=== PATIENT | female | born 1980 | race Two or more races ===

== ENCOUNTER 2017-03-27 21:22 | Emergency (ER) | payer SELFPAY ==
[2017-03-27 22:01] VITALS: BP 112/63; PULSE 99; TEMP 98.7; BMI 34.7
--- NOTE | 2017-03-27 22:21 | PDOC ---
History of Present Illness - General Chief Complaint: Vaginal Bleeding Stated Complaint: MISCARRIAGE Time Seen by Provider: 03/27/17 21:47 - History of Present Illness Travel History: No Initial Comments: 03/27/17 22:13 36 yo F currently with twins, approx 16 weeks by recent second trimester ultrasound performed one week ago at [facility], here wtih c/o vaginal bleeding. has had spotting for the last week, no prior miscarriage. no lightheaded. no dizzy. no care. Past History - Past Medical History Allergies/Adverse Reactions: Allergies Allergy/AdvReac Type Severity Reaction Status Date / Time No Known Allergies Allergy Verified 03/27/17 21:43 Home Medications: Ambulatory Orders NK [No Known Home Medication] 03/27/17 - Reproductive History Is Patient Now?: Yes - Psycho/Social/Smoking Cessation Hx Suicidal Ideation: No Smoking History: Current every day smoker Information on smoking cessation initiated: No Review of Systems - Review of Systems Constitutional: No: Chills, Diaphoresis, Fever HEENTM: No: Eye Pain, Blurred Vision Respiratory: No: Cough, Orthopnea, Shortness of Breath Cardiac (ROS): No: Chest Pain, Edema, Irregular Heart Rate : Yes: Other (vaginal bleeding.) Integumentary: No: Bruising, Change in Color Neurological: No: Headache, Numbness All Other Systems: Reviewed and Negative *Physical Exam - Vital Signs Last Vital Signs Temp Pulse Resp BP Pulse Ox 98.7 F 99 H 20 112/63 97 03/27/17 21:59 03/27/17 21:59 03/27/17 21:59 03/27/17 21:59 03/27/17 21:59 - Physical Exam General Appearance: Yes: Nourished HEENT: positive: EOMI, Normal Voice Neck: positive: Trachea midline Respiratory/Chest: positive: Lungs Clear, Normal Breath Sounds. negative: Respiratory Distress Cardiovascular: positive: Regular Rhythm, Regular Rate, S1, S2. negative: Edema , JVD, Murmur Vascular Pulses: Dorsalis-Pedis (R): 2+, Doralis-Pedis (L): 2+ Female Pelvic Exam: positive: normal external exam, other (fetus expulsed outside vagina, ) Gastrointestinal/Abdominal: positive: Normal Bowel Sounds. negative: Tender, Soft, Organomegaly Rectal Exam: negative: heme negative stool, normal exam Musculoskeletal: positive: Normal Inspection Extremity: positive: Normal Capillary Refill Integumentary: positive: Normal Color, Dry, Warm Neurologic: positive: Alert, Normal Mood/Affect ED Treatment Course - LABORATORY CBC & Chemistry Diagram: 03/27/17 22:30 03/27/17 22:30 Medical Decision Making - Medical Decision Making 03/27/17 22:26 36 yo F with twin gestation currently roughly 16 weeks, here s/p bleeding. partial delivery. pt with partial delievery. may require d &c, will consult OB executive personal assistant. labs iv fluids. 03/27/17 22:40 d/w dr. Jones, will see pt in the ED 03/28/17 01:28 pt evaluated by OB. passed single fetus, still with twin gestation remaing intrauterine with heart rate. question of whether single placenta, or dual placenta. per Dr. Jones, pt to be expectant management. if passes fetus at home, to return to evaluation for comlete evacuation of products. pt given follow up at [facility]. *DC/Admit/Observation/Transfer Diagnosis at time of Disposition: Miscarriage - Discharge Dispostion Disposition: HOME Admit: No - Referrals Referrals: Ari Jones MD [Staff Physician] - - Patient Instructions Printed Discharge Instructions: Threatened Additional Instructions: you should follow up with [facility], call [phone] to schedule on friday following. should you pass the second fetus you should return to Emergency Room for ultrasound to ensure passing of all products. drink plenty of fluids, you can follow up wt dr. Jones as well. see referral for phone numbers.
[2017-03-27] MEDS ORDERED: SODIUM CHLORIDE 1,000 ML IV STA (22:29)
[2017-03-27 22:52] LABS: BASOPHIL 0.5 % (0-2.0); EOSINOPHIL 0.9 % (0-4.5); MCH 31.1 pg (25.7-33.7); MCHC 34.2 g/dl (32.0-36.0); MEAN CELL VOLUME 91.1 fl (80-96); NEUTROPHILS 75.6 % (42.8-82.8); PLATELET COUNT 166 K/MM3 (134-434); RDW 12.8 % (11.6-15.6); WHITE BLOOD COUNT 14.7 K/mm3 (4.0-10.0)
[2017-03-28 00:44] LABS: ALBUMIN 2.7 g/dl (3.4-5.0); ANION GAP 12 (8-16); BILIRUBIN,TOTAL 0.3 mg/dL (0.2-1.0); CALCIUM 8.2 mg/dL (8.5-10.1); CO2 23 mmol/L (21-32); COCKROFT - GAULT 261.7405; CREATININE 0.5 mg/dL (0.55-1.02); GLUCOSE,RANDOM 92 mg/dL (74-106); SGOT/AST 10 U/L (15-37); SGPT/ALT 12 U/L (12-78); TOT PROT 6.2 g/dl (6.4-8.2)
[2017-03-28 00:45] LABS: ALK PHOS 88 U/L (45-117)
--- NOTE | 2017-03-28 17:27 | PN ---
Progress Note (short form) - Note Progress Note: ask to see patient 16 weeks with twins gestation passed one twin in er , no bleeding, no pain, afebrile, no care comfortable, agfebrile abdomen soft, non tender, no cva, pelvic vagina no blood, cx closed long, no blood no fluid seen .no tissue seen sono 15 weeks,live gestation, normal af case discussed with patient advised d/c home with instruction, if pain, vaginal bleeding, fever , abdominal pain, passing tissue to return, also make apt for follow up in clinc at [facility] in am
--- NOTE | 2017-04-02 11:20 | PATH ---
Surgical Pathology Report Patient Name: ZAC GOMEZ [facility]. Rec. #: [id number] /Age/Gender: 1980 (Age: 36) / F Account: [id number] Location: EMERGENCY ROOM Taken: 03/27/2017 Received: 03/28/2017 Reported: 03/31/2017 Physicians: PHYSICIAN EMERGENCY DEPT Ari Jones M.D. Specimen(s) Received A: PRODUCTS OF CONCEPTION TWIN #1 B: PRODUCTS OF CONCEPTION Clinical History Products of conception Final Diagnosis A. FETUS, TWIN #1, MISCARRIAGE: IMMATURE MALE FETUS, 42 GRAMS, WITH EXTENSIVE AUTOLYSIS. 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 B. UTERINE CONTENTS, EVACUATION: CLOTTED BLOOD. Comment: Recommend correlation with clinical findings and follow up as clinically indicated. Electronically Signed Peng Albrecht M.D. Gross Description A. Received fresh labeled with the patient's name and indicated on the requisition to be a fetus, is a 42 g mostly intact, markedly autolyzed fetus measuring 11 cm from crown to rump and 16.5 cm from crown to heel. Each foot measures 1.3 cm in length. The fetus appears to have a cleft lip and there is a small fissure of the palate. The eyelids are open. The anus and nares are patent. There is a defect in the abdominal wall, exposing the intestines. There is a 12 centimeter in length x 0.3 cm in diameter umbilical cord with 3 vessels attached at the umbilicus. The upper and lower extremities appear well proportioned and without defects. Each hand and foot displays 5 digits. There are no obvious axial defects and the lumbosacral spine is intact. The heart is normally positioned and no definite cardiac or lung abnormalities are noted. The abdominal organs are markedly autolyzed. The external genitalia appears to be that of a male. The brain is markedly autolyzed. Also received within the same container a 7.0 x 6.5 x 1.2 cm red-brown blood clot. Husker Operator sections are submitted in 5 cassettes as follows: 1-heart, lungs, umbilical cord; 2-liver and intestines; 3-kidneys, adrenals and possible testes; 4-brain; 5-blood clot. B. Received in formalin labeled with the patient's name and indicated on the requisition to be products of conception, is a 9.5 x 6.5 x 1.0 cm aggregate of brown blood clot. No definite villous tissue or placental tissue is identified. Husker Operator sections are submitted in 3 cassettes. 03/28/2017 [facility]03/28/2017
== END 2017-03-28 01:59 | disposition home or self-care (01) ==
LOC: JER 21:22
PROC: 3E0337Z Introduction of Electrolytic and Water Balance Substance into Peripheral Vein, Percutaneous Approach (ICD-10-PCS; principal; 2017-03-27)
DX: O30.092 Twin pregnancy, unable to determine number of placenta and number of amniotic sacs, second trimester (principal); O31.12X1 Continuing pregnancy after spontaneous abortion of one fetus or more, second trimester, fetus 1; Z3A.16 16 weeks gestation of pregnancy
CPT/HCPCS: 36415; 76815-TC; 80053; 85025; 86850; 86900; 86901; 88305-TC; 88309-TC; 99283-25

== ENCOUNTER 2017-04-10 18:17 | Inpatient (IN) | payer SELFPAY ==
--- NOTE | 2017-04-10 19:28 | PDOC ---
History of Present Illness - General History Source: Patient Exam Limitations: No Limitations - History of Present Illness Initial Comments: 04/10/17 20:16 Patient is a 36 year old female with no significant past medical history who presents to the ED with vaginal bleeding. Patient was seen in [facility] on 03/27, patient was with twins approx 16 weeks and had a miscarriage of 1 twin while in the ED. Patient presents today with vaginal bleeding and states that she is miscarying the second twin. She denies any nausea, vomiting or abdominal pain. She denies any dizziness or chest pain. <Cynthia Mendoza - Last Filed: 04/10/17 20:16> <Rafiq Welsh - Last Filed: 04/10/17 20:43> - General Chief Complaint: Vaginal Bleeding Stated Complaint: VAGINAL BLEEDING Time Seen by Provider: 04/10/17 19:28 Past History <Cynthia Mendoza - Last Filed: 04/10/17 20:16> - Past Medical History Other medical history: denies - Psycho/Social/Smoking Cessation Hx Suicidal Ideation: No Smoking History: Current every day smoker Number of Cigarettes Smoked Daily: 3 Information on smoking cessation initiated: Yes 'Breaking Loose' booklet given: 04/10/17 Hx Alcohol Use: No Drug/Substance Use Hx: No Substance Use Type: None <Rafiq Welsh - Last Filed: 04/10/17 20:43> - Past Medical History Allergies/Adverse Reactions: Allergies Allergy/AdvReac Type Severity Reaction Status Date / Time No Known Allergies Allergy Verified 04/10/17 20:33 Home Medications: Ambulatory Orders NK [No Known Home Medication] 03/27/17 Review of Systems - Review of Systems Able to Perform ROS?: Yes Comments:: 04/10/17 20:17 CONSTITUTIONAL: No fever, no chills, no fatigue EYES: No visual changes ENT: No ear pain, no sore throat CARDIOVASCULAR: No chest pain, no palpitations RESPIRATORY: No cough, no SOB GI: No abdominal pain, no nausea, no vomiting, no constipation, no diarrhea GENITOURINARY: (+)vaginal bleeding. No dysuria, no frequency, no hematuria MUSCULOSKELETAL: No back pain, no joint pain, no myalgias SKIN: No rash NEURO: No headache <Cynthia Mendoza - Last Filed: 04/10/17 20:16> *Physical Exam - Vital Signs Last Vital Signs Temp Pulse Resp BP Pulse Ox 98 F 80 18 109/60 99 04/10/17 18:40 04/10/17 18:40 04/10/17 18:40 04/10/17 18:40 04/10/17 18:40 <Cynthia Mendoza - Last Filed: 04/10/17 20:16> - Vital Signs Last Vital Signs Temp Pulse Resp BP Pulse Ox 98 F 80 18 109/60 99 04/10/17 18:40 04/10/17 18:40 04/10/17 18:40 04/10/17 18:40 04/10/17 18:40 - Physical Exam Comments: 04/10/17 20:42 EXAMINATION CONSTITUTIONAL: Well-appearing; well-nourished; in no apparent distress HEAD: Normocephalic; atraumatic EYES: PERRL; EOM intact ENMT: External appears normal; normal oropharynx NECK: Supple; non-tender; no cervical lymphadenopathy CARD: Normal S1, S2; no murmurs, rubs, or gallops RESP: Normal chest excursion with respiration; breath sounds clear and equal bilaterally; no wheezes, rhonchi, or rales ABD: Soft, non-distended; non-tender; no palpable organomegaly, no palpable hernias : + Partially delivered fetus is noted with umbilical cord still intact. Cervix is closed. CROW Schneider present for the exam. EXT: Normal ROM in all four extremities; non-tender to palpation; distal pulses intact SKIN: Warm, dry, no rash NEURO: No focal neurological deficiencies. <Rafiq Welsh - Last Filed: 04/10/17 20:43> ED Treatment Course - LABORATORY CBC & Chemistry Diagram: 04/10/17 19:51 04/10/17 19:51 <Rafiq Welsh - Last Filed: 04/10/17 20:43> Medical Decision Making - Medical Decision Making 04/10/17 20:43 Patient is a 36-year-old female who presented with signs and symptoms of incomplete . Patient seen and evaluated by Dr. Kuhn of [facility]. Patient will require admission to the or for dilation and evacuation. <Rafiq Welsh - Last Filed: 04/10/17 20:43> *DC/Admit/Observation/Transfer - Attestations Scribe Attestion: 04/10/17 20:17 Documentation prepared by ALYSON Raines, acting as hospitalist medical director for Rafiq Welsh MD. <Cynthia Mendoza - Last Filed: 04/10/17 20:16> - Discharge Dispostion Admit: Yes - Attestations Physician Attestion: 04/10/17 20:42 The documentation was prepared by the scribe under my direct supervision. I have reviewed the documentation which correctly represents the findings, medical decision-making and critical action taken by me. <Rafiq Welsh - Last Filed: 04/10/17 20:43> Diagnosis at time of Disposition: Incomplete
[2017-04-10] MEDS ORDERED: SODIUM CHLORIDE 1,000 ML IV STA (19:37)
[2017-04-10] MEDS ORDERED: D5W-LR W/ 20 UNITS OXYTOCIN 1,000 ML IV SCH ×2 (20:15→23:45)
[2017-04-10 20:30] LABS: EOSINOPHIL 1.6 % (0-4.5); MEAN CELL VOLUME 91.6 fl (80-96)
[2017-04-10 20:32] LABS: BASOPHIL 0.3 % (0-2.0); MCH 31.4 pg (25.7-33.7); MCHC 34.3 g/dl (32.0-36.0); MEAN PLT VOLUME 11.9 fl (7.5-11.1); NEUTROPHILS 65.2 % (42.8-82.8); PLATELET COUNT 175 K/MM3 (134-434); WHITE BLOOD COUNT 10.3 K/mm3 (4.0-10.0)
[2017-04-10 21:11] LABS: INR 0.98 (0.82-1.09); PROTHROMBIN TIME (PATIENT) 10.8 SEC (9.98-11.88)
[2017-04-10 21:13] LABS: ALBUMIN 2.8 g/dl (3.4-5.0); ANION GAP 10 (8-16); CALCIUM 8.9 mg/dL (8.5-10.1); CO2 24 mmol/L (21-32); COCKROFT - GAULT 278.4515; CREATININE 0.5 mg/dL (0.55-1.02); GLUCOSE,RANDOM 82 mg/dL (74-106); SGOT/AST 12 U/L (15-37); SGPT/ALT 13 U/L (12-78)
[2017-04-10 21:15] LABS: ALK PHOS 79 U/L (45-117); BILIRUBIN,TOTAL 0.3 mg/dL (0.2-1.0); TOT PROT 6.4 g/dl (6.4-8.2)
--- NOTE | 2017-04-10 22:30 | HP ---
Past Medical History - Primary Care Physician PCP:: Ari Jones - Admission Chief Complaint: 17 weeks, spont. , retained placenta History of Present Illness: 36 yo f with hx of twins 16 weeks , passed one twins 2 weeks ago, now returned with spont . of second twins. has retained placenta, admitted for removal of placenta under anesthesia, risks of infection, bleeding, perforation , scaring of uterus, infertility, post op complication, anesthesia risks discussed, ulcerative and no tx discussed, History Source: Patient Limitations to Obtaining History: No Limitations - Past Surgical History Hx Myomectomy: No Hx Transabdominal Cerclage: No - Smoking History Smoking history: Current every day smoker Aproximately how many cigarettes per day: 3 - Alcohol/Substance Use Hx Alcohol Use: No - Social History Usual Living Arrangement: Yes: With Spouse History of Recent Travel: No Home Medications - Allergies Allergies/Adverse Reactions: Allergies Allergy/AdvReac Type Severity Reaction Status Date / Time No Known Allergies Allergy Verified 04/10/17 20:33 - Home Medications Home Medications: Ambulatory Orders NK [No Known Home Medication] 03/27/17 Review of Systems - Review of Systems Constitutional: reports: No Symptoms Eyes: reports: No Symptoms HENT: reports: No Symptoms Neck: reports: No Symptoms Cardiovascular: reports: No Symptoms Respiratory: reports: No Symptoms Gastrointestinal: reports: Abdominal Pain Genitourinary: reports: Vaginal Bleeding Breasts: reports: No Symptoms Reported Musculoskeletal: reports: No Symptoms Integumentary: reports: No Symptoms Neurological: reports: No Symptoms Endocrine: reports: No Symptoms Hematology/Lymphatic: reports: No Symptoms Psychiatric: reports: No Symptoms 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 Vital Signs: Vital Signs Temperature 98.2 F 04/10/17 21:39 Pulse Rate 76 04/10/17 21:39 Respiratory Rate 04/10/17 21:39 Blood Pressure 107/59 04/10/17 21:39 O2 Sat by Pulse Oximetry (%) 99 04/10/17 21:39 Constitutional: Yes: Well Nourished, No Distress, Calm Eyes: Yes: WNL, Conjunctiva Clear, EOM Intact HENT: Yes: WNL, Atraumatic, Normocephalic Neck: Yes: WNL, Supple, Trachea Midline Cardiovascular: Yes: WNL, Regular Rate and Rhythm Respiratory: Yes: WNL, Regular, CTA Bilaterally Gastrointestinal: Yes: WNL ...Rectal Exam: Yes: WNL Renal/: Yes: WNL Vaginal Exam: Yes: Bleeding Cervix: Yes: Other (closed , thin cord , attach to macerated 16 weeks fetus, bleeding from os) Uterus: Yes: Anteverted, Enlarged Adnexa: Not Palpable: Left, Right Breast(s): Yes: WNL Musculoskeletal: Yes: WNL Extremities: Yes: WNL Integumentary: Yes: WNL Neurological: Yes: WNL, Alert, Oriented ...Motor Strength: WNL Psychiatric: Yes: WNL, Alert, Oriented Problem List - Problem (1) Retained placenta Code(s): O73.0 - RETAINED PLACENTA WITHOUT HEMORRHAGE Qualifiers: Retained placenta detail: complete placenta Qualified Code(s): O73.0 - Retained placenta without hemorrhage Assessment/Plan admit for manual removal under anesthesia, D&C
[2017-04-10] MEDS ORDERED: SUCCINYLCHOLINE CHLORIDE 200 MG/10 ML VIAL ONE (23:00)
[2017-04-10] MEDS ORDERED: ceFAZolin SODIUM 1 GM VIAL IVPB ONE (23:00)
[2017-04-10] MEDS ORDERED: PROPOFOL 20 ML ONE (23:11)
[2017-04-10] MEDS ORDERED: KETOROLAC TROMETHAMINE 30 MG/1 ML VIAL ONE (23:26)
[2017-04-10] MEDS ORDERED: IBUPROFEN 600 MG TABLET (FP) PO PRN (23:40)
[2017-04-10] MEDS ORDERED: IBUPROFEN 800 MG/8 ML IJ IVPB PRN (23:40)
[2017-04-10] MEDS ORDERED: ONDANSETRON 4 MG/2 ML VIAL IVPB PRN (23:40)
[2017-04-10] MEDS ORDERED: oxyCODONE HCL 5 MG TABLET PO PRN (23:40)
[2017-04-10] MEDS ORDERED: LACTATED RINGERS SOLUTION 1,000 ML IV SCH (23:45)
[2017-04-10] MEDS ORDERED: ELECTROLYTE-148 SOLN 1,000 ML IV SCH (23:45)
[2017-04-11] MEDS: CEFAZOLIN (PRE-DOCKED) 50 ML IVPB SCH ×2 (02:02→10:36)
[2017-04-11 02:53] VITALS: BMI 38.2
--- NOTE | 2017-04-11 07:49 | PN ---
Progress Note (short form) - Note Progress Note: pod 1 no c/o no excess vaginal bleeding CBC, BMP 04/10/17 19:51 Last Vital Signs Temp Pulse Resp BP Pulse Ox 98 F 72 18 104/55 99 04/11/17 05:35 04/11/17 05:35 04/11/17 05:35 04/11/17 05:35 04/11/17 00:45 abdopmen soft, non tender, no cva nop excess vaginal l bleeding plan d/c home follow up clinc 2 weeks, instruction given Problem List - Problems (1) Retained placenta Code(s): O73.0 - RETAINED PLACENTA WITHOUT HEMORRHAGE Qualifiers: Retained placenta detail: complete placenta Qualified Code(s): O73.0 - Retained placenta without hemorrhage
[2017-04-11 07:57] LABS: MCH 31.7 pg (25.7-33.7); MCHC 34.8 g/dl (32.0-36.0); MEAN PLT VOLUME 11.1 fl (7.5-11.1); PLATELET COUNT 161 K/MM3 (134-434); RDW 12.7 % (11.6-15.6)
--- NOTE | 2017-04-11 08:25 | PN ---
Progress Note, Physician Chief Complaint: s/p d&c under general anesthesia post op day one History of Present Illness: post op day one - Current Medication List Current Medications: Active Medications Dextrose/Lactated Ringer's (Pitocin 20 Units In D5-Lr -) 1,000 mls @ 125 mls/ hr IV ASDIR SHADI Last Admin: 04/11/17 02:00 Dose: 125 mls/hr Cefazolin Sodium (Ancef 1gm Ivpb (Pre-Docked)) 50 mls @ 100 mls/hr IVPB Q8H-IV SHADI Stop: 04/12/17 01:59 Last Admin: 04/11/17 02:02 Dose: 100 mls/hr Ibuprofen (Motrin -) 600 mg PO Q6H PRN PRN Reason: FEVER Ibuprofen (Caldolor Injection -) 800 mg IVPB Q6H PRN PRN Reason: PAIN Ondansetron HCl (Zofran Injection) 4 mg IVPB Q6H PRN PRN Reason: NAUSEA Oxycodone HCl (Roxicodone -) 5 mg PO Q4H PRN PRN Reason: PAIN - Objective Vital Signs: Vital Signs Temperature 98 F 04/11/17 05:35 Pulse Rate 72 04/11/17 05:35 Respiratory Rate 18 04/11/17 05:35 Blood Pressure 104/55 04/11/17 05:35 O2 Sat by Pulse Oximetry (%) 99 04/11/17 00:45 Constitutional: Yes: Well Nourished Cardiovascular: Yes: WNL Respiratory: Yes: WNL Gastrointestinal: Yes: WNL Labs: CBC, BMP 04/11/17 06:30 INR, PTT INR 0.98 (0.82-1.09) 04/10/17 19:51 Assessment/Plan no nausea or vomiting or any other adverse effects from anesthetic. Dept of anesthesia will sign off care at this time.
--- NOTE | 2017-04-11 08:30 | OP ---
DATE OF OPERATION: 04/10/2017 PREOPERATIVE DIAGNOSIS: Second trimester spontaneous twin with retained placentas. POSTOPERATIVE DIAGNOSIS: Second trimester spontaneous twin with retained placentas. PROCEDURE: Removal of the placenta and suction dilatation and curettage SURGEON: Ari Jones MD ANESTHESIA: General. ESTIMATED BLOOD LOSS: 300 mL. OPERATIVE NOTE: Patient was taken to the operating room. Under adequate general anesthesia, examination under anesthesia revealed a macerated 16-week , attached cord. Cervix was closed. A thin cord was protruding through the os, then the cord was cut. Then a polyp forceps was introduced and the placenta was removed in pieces, then suction curet was inserted and the rest was suctioned. Then with a smooth curet, uterine cavity was curetted and the rest of the placenta was removed. Then suction was again reinserted. No more tissue was found and no active bleeding was seen. Pitocin IV drip was given. Patient tolerated the procedure well, left the OR in good condition. Sindy [id number]
[2017-04-11 08:46] VITALS: BP 96/51; PULSE 65; TEMP 98.4
--- NOTE | 2017-04-14 12:24 | PATH ---
Surgical Pathology Report Patient Name: ZAC GOMEZ Med. Rec. #: [id number] /Age/Gender: 1980 (Age: 36) / F Account: [id number] Location: [address] [place] [address]/[facility] Taken: 04/10/2017 Received: 04/11/2017 Reported: 04/14/2017 Physicians: Ari Jones M.D. Specimen(s) Received A: UTERINE CONTENTS B: UTERINE CONTENTS (FETUS) Clinical History Incomplete Final Diagnosis A. UTERINE CONTENTS: IMMATURE PLACENTAL TISSUE WITH FOCAL NECROSIS. B. UTERINE CONTENTS (FETUS): 16 WEEK STATED GESTATIONAL AGE, 19 GM FETUS WITH MARKED AUTOLYSIS AND CRUSH ARTIFACT. CROWN TO RAMP LENTH: 7.8 CM. FOOT LENGTH: 1.3 CM. ANTHROPOMETRIC MEASUREMENTS ARE WELL BELOW 10% PERCENTILE FOR STATED GESTATIONAL AGE. LIMITED EXTERNAL ASSESSMENT DUE TO CRUSH ARTIFACT. INTERNAL ORGANS APPEAR TO BE IN NORMAL ANATOMIC POSITION WITH MARKED AUTOLYIS. Electronically Signed Sterling Norman M.D. Gross Description A. Received in formalin labeled "uterine contents" is a 15.5 x 11.0 x 2.0 cm aggregate of subramanian red soft tissue fragments. Abundant villous tissue is identified. No somatic tissue is identified. A client account representative portion is submitted in one cassette. B. Received in formalin labeled "uterine content" is a 19 g, markedly crushed and deformed fetus. The skin is markedly macerated. The specimen measures 7.8 cm from crown to rump and the foot measures 1.3 cm from heel to toe. The fetus displays 2 eyes and a mouth and tongue. Four limbs are noted. Due to the markedly deformed nature of the fetus, no definite anomalies can be appreciated. The internal organs are markedly autolyzed and due to the deformed nature of the fetus, the relationship of the internal organs cannot be appreciated. Business Test Analyst sections are submitted in 3 cassettes as follows: 1-heart and lungs; 2-liver and intestines; 3-possible kidneys and adrenals. 04/11/201704/11/2017
== END 2017-04-11 12:32 | disposition home or self-care (01) | DRG 544 ==
LOC: JER 18:17 → JERBED 20:41 → J6S 04-11 01:34
PROVIDERS: ADMIT Obstetrics & Gynecology; ATTEND Obstetrics & Gynecology
PROC: 10D17ZZ Extraction of Products of Conception, Retained, Via Natural or Artificial Opening (ICD-10-PCS; principal; 2017-04-10 22:00)
DX: O03.4 Incomplete spontaneous abortion without complication (principal); F17.210 Nicotine dependence, cigarettes, uncomplicated
CPT/HCPCS: 36415; 80053; 85025; 85027; 85610; 86850; 86900; 86901; 88305-TC; 88309-TC; 94760; 99284-25